=== PATIENT | female | born 1980 | race Caucasian/White ===

== ENCOUNTER → 2021-04-14 | Day surgery (SDC) | payer OTHER ==
[~2021-04-14] VITALS: Ht 165.1 cm; Wt 96.6 kg
[~2021-04-14] MED LIST: ADK 10 PO; BELBUCA300 MCG PO; CELEXA20 MG PO; DIM SGS PO; FIORICET1 EACH PO; IBUPROFEN800 MG PO; IODINE PO; LYRICA225 MG PO; METFORMIN HCL1000 M1 PO; ORTHO MICRONO0.35 MG PO; PREVACID30 M1 PO; RYBELSUS3 MG PO; SYNTHROID75 MCG PO; VITAMIN E1000 UNIT PO; ZANAFLEX2 MG PO; [UNRECOGNIZED DRUG - OTHER] PO
[2021-04-14 07:24] LABS: HCG (URINE) SCREEN NEGATIVE (NEGATIVE)
[2021-04-14 07:37] LABS: HCT 44.5 % (37.0-47.0); HGB 14.2 g/dl (12.5-16.0); MCH 27.6 pg (25.0-31.0); MCHC 31.9 g/dL (32.0-36.0); MCV 86.4 fL (78.0-100.0); MPV 9.6 fL (6.0-9.5); RBC 5.15 M/uL (4.20-5.40); RDW 14.6 % (11.5-14.0); WBC 11.1 K/uL (4.0-10.5)
[2021-04-14 07:45] LABS: ALBUMIN 3.6 g/dL (3.4-5.0); BILIRUBIN - TOTAL 0.1 mg/dL (0.2-1.0); CREATININE 0.6 mg/dL (0.51-0.95); POTASSIUM 4.1 mmol/L (3.5-5.1); TOTAL PROTEIN 7.6 g/dL (6.4-8.2)
== END | disposition home or self-care (01) ==
LOC: FAS 03-03 07:30 → EDSTATUS 03-03 07:30 → FAS 06:29
PROVIDERS: Specialist
DX: N80.0 Endometriosis of uterus (principal); N72 Inflammatory disease of cervix uteri; N92.1 Excessive and frequent menstruation with irregular cycle; E66.9 Obesity, unspecified; Z79.84 Long term (current) use of oral hypoglycemic drugs; Z79.899 Other long term (current) drug therapy
CPT/HCPCS: 36415; 80053; 84703; 86850; 86900; 86901; 93005; J0690; J1100; J1170; J1644; J1885; J2250; J2405; J2550; J2704; J2710; J3010; J7120

== ENCOUNTER 2021-05-08 11:36 | Emergency (ER) | payer OTHER ==
[2021-05-08 13:42] LABS: BASOPHIL 0.4 % (0-2); EOSINOPHIL 2.5 % (0-5); HCT 40.4 % (37.0-47.0); HGB 12.8 g/dl (12.5-16.0); LYMPHOCYTE 47.1 % (15-48); MCH 27.6 pg (25.0-31.0); MCHC 31.7 g/dL (32.0-36.0); MCV 87.3 fL (78.0-100.0); MONOCYTE 5.2 % (0-12); MPV 9.9 fL (6.0-9.5); NEUTROPHIL 44.6 % (41-80); NRBC 0; PLT 321 K/uL (150-400); RBC 4.63 M/uL (4.20-5.40); RDW 14.4 % (11.5-14.0); WBC 8.9 K/uL (4.0-10.5)
[2021-05-08 14:02] LABS: INR 0.95 (0.9-1.2); PROTHROMBIN TIME 12.1 SECONDS (11.8-13.4); PTT 30.7 SECONDS (24.4-34.7)
[2021-05-08 14:45] LABS: ALBUMIN 3.3 g/dL (3.4-5.0); BILIRUBIN - TOTAL 0.1 mg/dL (0.2-1.0); CREATININE 0.56 mg/dL (0.51-0.95); GLOBULIN (CALCULATION) 3.2 g/dL; POTASSIUM 4.4 mmol/L (3.5-5.1); TOTAL PROTEIN 6.5 g/dL (6.4-8.2)
[2021-05-08 15:28] LABS: BILIRUBIN NEGATIVE (NEGATIVE); BLOOD 3+ Ery/uL (NEGATIVE); CLARITY HAZY (CLEAR); COLOR RED (YELLOW); GLUCOSE (U) NORMAL (NORMAL); LEUKOCYTES NEGATIVE Leu/uL (NEGATIVE); NITRITE NEGATIVE (NEGATIVE); PROTEIN NEGATIVE (NEGATIVE); SPECIFIC GRAVITY 1.025 (1.001-1.030); UROBILINOGEN 0.2 mg/dL (0.2-1.0)
[2021-05-08 15:43] LABS: BACTERIA TRACE; URINARY RBC TNTC
[2021-05-08] MEDS ORDERED: NYSTATIN SUSP1 ML/ML SSP (17:01)
== END 2021-05-08 17:20 | disposition home or self-care (01) ==
LOC: FER 11:36
PROVIDERS: Emergency Medicine; Nurse Practitioner Family
DX: N99.820 Postprocedural hemorrhage of a genitourinary system organ or structure following a genitourinary system procedure (principal); E11.9 Type 2 diabetes mellitus without complications; Z79.84 Long term (current) use of oral hypoglycemic drugs; Z91.040 Latex allergy status; Z88.8 Allergy status to other drugs, medicaments and biological substances
CPT/HCPCS: 36415; 80053; 81001; 85025; 85610; 85730; 86850; 86900; 86901; J7120; Q9967